=== PATIENT | female | born 2005 | race Two or more races ===

== ENCOUNTER 2024-06-27 07:55 | Day surgery (SDC) | payer OTHER ==
[2024-06-20 09:17] LABS: HEMATOCRIT 34.5 % (36.0-45.00); HEMOGLOBIN 11.6 g/dL (12.0-15.00); MEAN CELL VOLUME 76.5 fL (80.00-100.00); MEAN CORPUSCULAR HEMOGLOBIN 25.7 pg (27.00-32.0); MEAN CORPUSCULAR HGB CONC 33.6 g/dl (32.0-36.0); PLATELET COUNT 283 K/uL (150-450); RED BLOOD COUNT 4.52 M/uL (4.00-6.00); RED CELL DISTRIBUTION WIDTH 14.9 % (11.5-14.5)
[2024-06-20 09:26] LABS: PH,URINE 7.5 (5.0-8.0); URINE APPEARANCE Cloudy; URINE BACTERIA 4747.5 uL (0.0-1933); URINE BILIRRUBIN Negative (NEGATIVE); URINE BLOOD Small; URINE COLOR Yellow; URINE GLUCOSE Negative (NEGATIVE); URINE KETONE Negative (NEGATIVE); URINE LEUKOCYTE Trace; URINE NITRATE Negative; URINE PROTEIN Negative (NEGATIVE); URINE RBC 8.5 uL (0.0-20.8); URINE WBC 77.7 uL (0.0-23.2)
[2024-06-20 09:32] LABS: URINE CAST 0.15 uL (0.0-1.40)
[2024-06-20 09:56] LABS: INR 0.99; PARTIAL THROMBOPLASTIN TIME 26.8 SECONDS (22.0-34.0); PROTHROMBIN TIME 10.8 SECONDS (9.0-11.5)
[2024-06-20 10:30] LABS: BILIRUBIN TOTAL 0.53 mg/dL (0.3-1.2); CALCIUM 9.4 mg/dL (8.5-10.1); CREATININE SERUM 0.76 mg/dL (0.55-1.02); GFR 96.07; GLOBULINA 3.4 G/DL (2.4-3.5); POTASSIUM 4.48 mEq/L (3.5-5.1); TOTAL PROTEIN 7.4 gm/dL (6.4-8.2)
[2024-06-27] MEDS ORDERED: CEFAZOLIN SODIUM 1,000 MG VIAL ONE ×2 (13:10→16:53)
[2024-06-27] MEDS ORDERED: CHLORHEXIDINE GLUCONATE 120 ML BOTTLE TOP ONE (15:16)
[2024-06-27] MEDS ORDERED: LIDOCAINE HCL 1% 20ML VIAL IJ ONE (15:17)
[2024-06-27] MEDS ORDERED: LIDOCAINE HCL 1%/EPINEPHRINE 20ML VIAL IJ ONE (15:17)
[2024-06-27] MEDS ORDERED: FAMOTIDINE/PF 20 MG/10 ML SYRINGE IV SCH (16:30)
[2024-06-27] MEDS ORDERED: CEFAZOLIN SODIUM 1,000 MG VIAL IV SCH (16:30)
[2024-06-27] MEDS ORDERED: FAMOTIDINE/PF 20 MG/2 ML VIAL ONE (16:56)
== END 2024-06-27 17:50 | disposition home or self-care (01) ==
LOC: CIR.AMB 07:55
PROVIDERS: ATTEND Specialist
DX: D36.7 Benign neoplasm of other specified sites (principal); D21.22 Benign neoplasm of connective and other soft tissue of left lower limb, including hip; R22.2 Localized swelling, mass and lump, trunk

== ENCOUNTER 2025-10-17 16:32 | Emergency (ER) | payer OTHER ==
[~2025-10-17] VITALS: Ht 147.3 cm; Wt 65.8 kg
[2025-10-17 16:39] VITALS: BP 133/84; O2SAT 99
[2025-10-17] MEDS ORDERED: FAMOTIDINE/PF 20 MG/2 ML VIAL IV ONE (17:15)
[2025-10-17] MEDS ORDERED: LACTOBACILLUS ACIDOPHILUS 1 CAP CAP PO ONE ×2 (17:15→17:55)
[2025-10-17] MEDS ORDERED: ONDANSETRON HCL 2 MG/ML VIAL IV ONE (17:15)
[2025-10-17] MEDS ORDERED: 0.9 % SODIUM CHLORIDE 1,000 ML IV ONE (17:15)
[2025-10-17] MEDS ORDERED: ONDANSETRON HCL 2 MG/ML VIAL ONE (17:55)
[2025-10-17] MEDS ORDERED: FAMOTIDINE/PF 20 MG/2 ML VIAL ONE (17:56)
[2025-10-17 18:33] LABS: BASO % 0.3 % (0.1-1.2); EOS # 0.02 (0.04-0.54); EOS % 0.2 % (0.7-7.0); LYMPH # 1.26 (1.18-3.74); LYMPH % 10.5 % (19.3-53.1); MEAN PLATELET VOLUME 10.60 fl (9.4-12.4); MONO # 0.51 (0.24-0.82); MONO % 4.3 % (4.7-12.5); NEUT # 10.14 (1.56-6.13); NEUT % 84.4 % (34.0-71.1); RED CELL DISTRIBUTION WIDTH 13.2 % (11.6-14.4)
[2025-10-17 18:46] LABS: COVID-19 AG NEGATIVE (NEGATIVE)
[2025-10-17 19:05] LABS: ALT/SGPT 28.0 U/L (12-78); AST/SGOT 16.0 U/L (15-37); BILIRUBIN TOTAL 0.87 mg/dL (0.3-1.2); BUN CREA RATIO 11.0 (7.0-25.0); CREATININE SERUM 0.91 mg/dL (0.55-1.02); GFR 77.3; GLOBULINA 3.7 G/DL (2.4-3.5); GLUCOSE FASTING 114.0 mg/dL (65-100); OSMOLALITY SERUM 279.0 MOSM/KG (275-295)
[2025-10-17 19:14] LABS: URINE APPEARANCE Cloudy; URINE BILIRRUBIN Negative (NEGATIVE); URINE BLOOD Negative; URINE COLOR Yellow; URINE GLUCOSE Negative (NEGATIVE); URINE LEUKOCYTE Moderate; URINE NITRATE Negative; URINE PROTEIN Trace (NEGATIVE); URINE UROBILINOGEN 1.0 E.U./dl
[2025-10-17 19:19] LABS: URINE EPITHELIAL CELLS 115.9 uL (0.0-38.8); URINE RBC 19.5 uL (0.0-20.8); URINE WBC 277.2 uL (0.0-23.2)
[2025-10-17 19:48] LABS: URINE CAST 0.70 uL (0.0-1.40); URINE KETONE 40 (NEGATIVE)
[2025-10-17] MEDS ORDERED: CEFTRIAXONE SODIUM 1,000 MG VIAL IV ONE (20:00)
[2025-10-17] MEDS ORDERED: CEFTRIAXONE SODIUM 1,000 MG VIAL ONE (20:12)
[2025-10-17] MEDS ORDERED: PEPCID AC20 MG PO (20:42)
[2025-10-17] MEDS ORDERED: ONDANSETRON ODT4 MG PO (20:42)
[2025-10-17] MEDS ORDERED: MACROBID 100 M100 MG PO (20:42)
[2025-10-17] MEDS ORDERED: INTESTINEX680 M1 PO (20:42)
== END 2025-10-17 21:30 | disposition home or self-care (01) ==
LOC: ER 16:32
PROVIDERS: Student in an Organized Health Care Education/Training Program
DX: N39.0 Urinary tract infection, site not specified (principal); R10.13 Epigastric pain; K52.89 Other specified noninfective gastroenteritis and colitis; Z20.822 Contact with and (suspected) exposure to COVID-19